=== PATIENT | male | born 1935 | race Caucasian/White ===

== ENCOUNTER → 2016-11-16 | Outpatient (CLI) | payer BC ==
[~2016-11-16] MED LIST: ASCO500T16 PO; ASPI81TA28 PO; BROM0.07 OPR; CEPH-571 PO; CHOLTAB3 PO; COCO1OIL2 PO; COEN100C3 PO; DUTA0.5C PO; IBUP-103 PO; MISCCAP3 PO; MULT-506 PO; PRED1SUS17 OPL; PRED1SUS3 OPR; RANI75TA7 PO; RANITAB33 PO; TAMS0.4C38 PO; ZINC1TAB PO
[2016-11-16 12:57] LABS: BASO % 0.3 %; BASO ABS # 0.02 K/uL (0-0.2); COMPLETE YES; EOS % 1.6 %; HEMATOCRIT 45.6 % (42-52); IG% 0.2 %; LYMPH % 30.6 %; LYMPH ABS # 1.94 K/uL (1.2-3.4); MEAN CORPUSCULAR HEMOGLOBIN 32.7 pg (25-34); MEAN CORPUSCULAR HGB CONC 34.4 g/dl (32-36); MONO % 6.2 %; NEUT % 61.1 %; PLATELET COUNT 230 K/uL (130-400); WHITE BLOOD COUNT 6.33 K/uL (4.8-10.8)
[2016-11-16 13:07] LABS: ALT/SGPT 28 U/L (12-78); AST/SGOT 17 U/L (15-37); BLOOD UREA NITROGEN 17 mg/dl (7-18); BUN/CREATININE RATIO 14.3 (10-20); CARBON DIOXIDE 27 mmol/L (21-32); CHLORIDE 105 mmol/L (98-107); CHOLESTEROL 209 mg/dl (0-200); GLUCOSE 100 mg/dl (70-99); POTASSIUM 4.1 mmol/L (3.5-5.1); SODIUM 142 mmol/L (136-145); TRIGLYCERIDES 181 mg/dl (0-150); VERY LOW DENSITY LIPOPROT CALC 36 mg/dl
[2016-11-16 13:09] LABS: ALB/GLOB RATIO 1.1 (0.9-2); ALKALINE PHOSPHATASE 71 U/L (45-117); CHOLESTEROL/HDL RATIO 3.9; HDL CHOLESTEROL 53 mg/dl
== END | disposition home or self-care (01) ==
LOC: C.LABSPEC 12:29
PROVIDERS: ATTEND Internal Medicine
DX: E78.5 Hyperlipidemia, unspecified (principal); R53.83 Other fatigue

== ENCOUNTER → 2016-11-17 | Outpatient (CLI) | payer BC | END | disposition home or self-care (01) | LOC: C.LABSPEC 12:36 | PROVIDERS: ATTEND Internal Medicine | DX: R19.4 Change in bowel habit (principal) ==

== ENCOUNTER → 2016-12-24 | Day surgery (SDC) | payer BC ==
[2016-12-20 13:21] VITALS: Ht 185.4 cm; Wt 90.9 kg
[~2016-12-24] VITALS: Ht 185.4 cm; Wt 90.9 kg
[~2016-12-24] MED LIST changes: +500ML BSS 0.3ML EPI 1:1000PF IRRIG ONE; +ACETAMINOPHEN 325 MG TAB PO PRN; +AMVISC PLUS 0.8ML SYRINGE INT OCU ONE; +ATROPINE SULFATE 0.1 MG/ML 5ML SYR IV PRN; +BRIMONIDINE TART 0.2% OP SOLN PER DROP CHARGE ONE; +BSS FLUSH ONE; -CHOLTAB3 PO; +ENDOCOAT 0.85ML SYRINGE INT OCU ONE; +EpHEDrine SULFATE INJ 50 MG/ML AMP IV PRN; +EpINEphrine INJ 1MG/ML AMP 1 MG/ML AMP ONE; -IBUP-103 PO; +LACTATED RINGER'S 1000ML 500 ML IV SCH; +LIDOCAINE 4% OP SOLN DROP CHARGE ONE; +LIDOCAINE 4% OP SOLN DROP CHARGE OPR SCH; +LIDOCAINE HCL 1% MPF 2 ML VIAL ONE; +MIDAZOLAM HCL 1 MG/ML 2ML VIAL ONE; +MIX: 3ML BSS AND 1ML EPI(PF) TOP ONE; +MOXIFLOXACIN OPH SOLN PER DROP CHARGE ONE; +POVIDONE-IODINE OP SOLN 30 ML BTL ONE; +PROPARACAINE 0.5% OP SOLN PER DROP CHARGE OPR SCH; +TOBRAMYCIN/DEXAMETHASONE OPH OINT PER APPLN CHARGE ONE
[2016-12-24] MEDS: PHENYLEPHRINE HCL 2.5% OP SOLN PER DROP CHARGE OPR SCH ×2 (07:44→07:50)
[2016-12-24] MEDS: TROPICAMIDE 1% OP SOLN PER DROP CHARGE OPR SCH ×2 (07:45→07:50)
[2016-12-24] MEDS: CYCLOPENTOLATE HCL 1% OP SOLN PER DROP CHARGE OPR SCH ×2 (07:46→07:51)
[2016-12-24] MEDS: KETOROLAC 0.5% OP SOLN PER DROP CHARGE OPR SCH ×2 (07:47→07:52)
[2016-12-24] MEDS: MOXIFLOXACIN OPH SOLN PER DROP CHARGE OPR SCH ×2 (07:48→07:58)
--- NOTE | 2016-12-24 08:08 | History & Physical Bridge - [place] ---
H&P Re-Evaluation Bridge Note: I have examined the patient, reviewed the History & Physical and in the interval since the performance of the History & Physical I have noted the following changes of clinical significance: No changes noted
[2016-12-24 09:08] VITALS: TEMP 36.1
--- NOTE | 2016-12-24 09:10 | Discharge Instructions-SurgCtr ---
Discharge Instructions Visit Reason for Visit: Cataract Right Eye Discharge Discharge Diagnosis / Problem: cataract right eye Discharge Goals Goal(s): Improve function Medications Stopped Medications Name(s): Pt. was told not to take a.m. meds. Activity Recommendations Activity Limitations: per Instructions/Follow-up section Lifting Limitations: no more than 5 pounds Anesthesia . Post Anesthesia Instructions: If you have had General Anesthesia or IV Sedation: * Do not drive today. * Resume driving when surgeon permits. * Do not make important decisions or sign legal documents today. * Call surgeon for: 1. Temperature elevations greater than 101 degrees F. 2. Uncontrollable pain. 3. Excessive bleeding. 4. Persistent nausea and vomiting. 5. Medication intolerance (nausea, vomiting or rash). * For nausea and vomiting use only clear liquids such as: tea, soda, bouillon until nausea subsides, then gradually increase diet as tolerated. * If you have any concerns or questions, call your surgeon's office. If physician is unavailable and it is an emergency, call 911 or go to the nearest emergency room. . Instructions / Follow-Up Instructions / Follow-Up ACTIVITY RECOMMENDATIONS: * Light activities * You may walk outside, read, watch television. * Mild irritation and blurred vision are common for the first few days, redness around the white part of the eye is common. MEDICATIONS: Resume previous medications unless instructed otherwise by your surgeon. Eye drops (today and tomorrow): Cipro - one drop in operative eye every 2 hours while awake Prednisolone 1% - one drop in operative eye every 2 hours while awake Ilevro - one drop operative eye 1 times daily SPECIAL CARE INSTRUCTIONS: * If any problems or concerns, please call Dr. Crawford's office at . * Keep plastic shield taped over eye to sleep at night. * Keep plastic shield taped over eye except to administer eye drops. * Keep plastic shield on until office visit the following day. FOLLOW UP VISIT: Follow-up with Dr. Crawford in the [place] office as scheduled. If not already scheduled, please call the office at . Diet Recommendations Home Diet: resume previous diet Procedures Procedures Performed: Right Cataract Phacoemulsification With Intraocular Lens Implant Pending Studies Studies pending at discharge: no Medical Emergencies . Who to Call and When: Medical Emergencies: If at any time you feel your situation is an emergency, please call 911 immediately. . Non-Emergent Contact Non-Emergency issues call your: Java Architect . . "Provider Documentation" section prepared by Jose Crawford.
--- NOTE | 2016-12-24 09:11 | [facility] Post Operative Brief Note ---
Immediate Operative Summary Operative Date Dec 24, 2016. Pre-Operative Diagnosis Right Eye Cataract Post-Operative Diagnosis same Procedure(s) Performed Right Cataract Phacoemulsification With Intraocular Lens Implant Surgeon Dr. Rima Crawford Insurance Defense Attorney Surgeon(s) 0 Estimated Blood Loss 0 Findings cataract right eye Specimens none Complication(s) None Disposition Recovery Room / PACU
[2016-12-24 09:32] VITALS: BP 129/79; PULSE 73; O2SAT 98
--- NOTE | 2016-12-24 09:33 | OPERATIVE REPORT ---
DATE OF OPERATION: 12/24/2016 PREOPERATIVE DIAGNOSIS: Cataract, right eye. POSTOPERATIVE DIAGNOSIS: Cataract, right eye. PROCEDURE: Phacoemulsification cataract extraction with intraocular lens placement, right eye. SURGEON: Dr. Crawford. COMPLICATIONS: None. ESTIMATED BLOOD LOSS: None. ANESTHESIA: Topical with sedation. OPERATION AND FINDINGS: After informed consent was obtained in the holding area the patient was wheeled back to the Operating Room where cardiac monitoring leads and oxygen by nasal cannula was administered by Anesthesia. Gentle IV sedation was given, and the patient's right eye was prepped and draped in usual sterile fashion. A wire lid speculum was placed into the right eye and the operating microscope was swung into position. Using 0.12 forceps and a Supersharp blade a paracentesis port was made 3 o'clock hours away from the 9 o'clock position of patient's right eye. 1% non-preserved Lidocaine was then injected into the anterior chamber for anesthesia. A 2.2 mm keratotome blade was then used to make a shelved clear corneal incision at the 9 o'clock position of his right eye. Amvisc was injected into the anterior chamber and a cystotome and Utrata forceps were used to perform a curvilinear capsulorrhexis. BSS on a hydrodissection cannula was used to hydrodissect the lens nucleus away from the capsular bag. The phacoemulsification handpiece was then used in a stop and chop fashion to remove the lens nucleus. The irrigation and aspiration handpiece was then used to remove the residual cortical material. Amvisc was injected into the capsular bag and anterior chamber and a Bausch \T\ Lomb MX60, 22.0 Diopter intraocular lens was injected into the capsular bag. Irrigation and aspiration handpiece was used to remove the residual viscoelastic material. The wounds were hydrated and noted to be watertight. The wire lid speculum was removed from the eye. Vigamox, Brimonidine, and TobraDex ointment were placed on the eye and it was shielded. It should be noted that a mixture of 1 mL of nonpreserved epinephrine and 3 mL of BSS was injected into the eye at the beginning of the case to aid with pupillary dilation in this Flomax patient. EndoCoat was also used extensively throughout the case to protect the cornea endothelium and to keep the iris back in this Flomax patient. DISPOSITION: The patient tolerated the procedure well and was wheeled to the post anesthesia care unit in stable condition. I attest to the content of the Intraoperative Record and any orders documented therein. Any exceptions are noted below. I attest to the content of the Intraoperative Record and any orders documented therein. Any exceptio ns are noted below.
--- NOTE | 2016-12-24 09:35 | Anesthesia Progress Nt - [facility] ---
Anesthesia Post Op Note Date & Time Dec 24, 2016 at 09:35 Vital Signs Pain Intensity: 0 Vital Signs Past 12 Hours Date Time Temp Pulse Resp B/P Pulse Ox O2 Delivery O2 Flow Rate FiO2 12/24/16 09:32 73 16 129/79 98 Room Air 12/24/16 09:08 36.1 80 16 134/85 98 Room Air 12/24/16 07:27 36.3 70 16 143/76 97 Room Air Notes Mental Status: alert / awake / arousable, participated in evaluation Pt Amnestic to Procedure: Yes Nausea / Vomiting: adequately controlled Pain: adequately controlled Airway Patency, RR, SpO2: stable & adequate BP & HR: stable & adequate Hydration State: stable & adequate Anesthetic Complications: no major complications apparent
== END | disposition home or self-care (01) ==
LOC: X.SURG 07:13
PROVIDERS: ATTEND Ophthalmology
DX: H25.11 Age-related nuclear cataract, right eye (principal); N42.9 Disorder of prostate, unspecified; Z87.891 Personal history of nicotine dependence; Z83.3 Family history of diabetes mellitus

== ENCOUNTER → 2017-01-07 | Day surgery (SDC) | payer BC ==
[2017-01-01 11:10] VITALS: Ht 185.4 cm; Wt 90.9 kg
[~2017-01-07] VITALS: Ht 185.4 cm; Wt 90.9 kg
[~2017-01-07] MED LIST changes: +FENTANYL CITRATE INJ 50 MCG/1 ML 2 ML VIAL ONE; +LIDOCAINE 4% OP SOLN DROP CHARGE OPL SCH; -LIDOCAINE 4% OP SOLN DROP CHARGE OPR SCH; +PROPARACAINE 0.5% OP SOLN PER DROP CHARGE OPL SCH; -PROPARACAINE 0.5% OP SOLN PER DROP CHARGE OPR SCH
[2017-01-07] MEDS: PHENYLEPHRINE HCL 2.5% OP SOLN PER DROP CHARGE OPL SCH ×2 (06:40→06:45)
[2017-01-07] MEDS: TROPICAMIDE 1% OP SOLN PER DROP CHARGE OPL SCH ×2 (06:41→06:46)
[2017-01-07] MEDS: CYCLOPENTOLATE HCL 1% OP SOLN PER DROP CHARGE OPL SCH ×2 (06:42→06:47)
[2017-01-07] MEDS: KETOROLAC 0.5% OP SOLN PER DROP CHARGE OPL SCH ×2 (06:43→06:48)
[2017-01-07] MEDS: MOXIFLOXACIN OPH SOLN PER DROP CHARGE OPL SCH ×2 (06:44→06:54)
[2017-01-07 07:57] VITALS: TEMP 36.4
--- NOTE | 2017-01-07 07:59 | Discharge Instructions-SurgCtr ---
Discharge Instructions Date of Service Jan 07, 2017. Visit Reason for Visit: Cataract Left Eye Discharge Discharge Diagnosis / Problem: cataract left eye Discharge Goals Goal(s): Improve function Activity Recommendations Activity Limitations: per Instructions/Follow-up section Lifting Limitations: no more than 5 pounds Anesthesia . Post Anesthesia Instructions: If you have had General Anesthesia or IV Sedation: * Do not drive today. * Resume driving when surgeon permits. * Do not make important decisions or sign legal documents today. * Call surgeon for: 1. Temperature elevations greater than 101 degrees F. 2. Uncontrollable pain. 3. Excessive bleeding. 4. Persistent nausea and vomiting. 5. Medication intolerance (nausea, vomiting or rash). * For nausea and vomiting use only clear liquids such as: tea, soda, bouillon until nausea subsides, then gradually increase diet as tolerated. * If you have any concerns or questions, call your surgeon's office. If physician is unavailable and it is an emergency, call 911 or go to the nearest emergency room. . Instructions / Follow-Up Instructions / Follow-Up ACTIVITY RECOMMENDATIONS: * Light activities * You may walk outside, read, watch television. * Mild irritation and blurred vision are common for the first few days, redness around the white part of the eye is common. MEDICATIONS: Resume previous medications unless instructed otherwise by your surgeon. Eye drops (today and tomorrow): Cipro - one drop in operative eye every 2 hours while awake Prednisolone 1% - one drop in operative eye every 2 hours while awake Ilevro - one drop operative eye 1 times daily SPECIAL CARE INSTRUCTIONS: * If any problems or concerns, please call Dr. Crawford's office at . * Keep plastic shield taped over eye to sleep at night. * Keep plastic shield taped over eye except to administer eye drops. * Keep plastic shield on until office visit the following day. FOLLOW UP VISIT: Follow-up with Dr. Crawford in the [place] office as scheduled. If not already scheduled, please call the office at . Diet Recommendations Home Diet: resume previous diet Procedures Procedures Performed: Left Cataract Phacoemulsification With Intraocular Lens Implant Pending Studies Studies pending at discharge: no Medical Emergencies . Who to Call and When: Medical Emergencies: If at any time you feel your situation is an emergency, please call 911 immediately. . Non-Emergent Contact Non-Emergency issues call your: Maintenance And Engineering Manager . . "Provider Documentation" section prepared by Jose Crawford.
--- NOTE | 2017-01-07 08:00 | [facility] Post Operative Brief Note ---
Immediate Operative Summary Operative Date Jan 07, 2017. Pre-Operative Diagnosis Cataract left eye Post-Operative Diagnosis same Procedure(s) Performed Left Cataract Phacoemulsification With Intraocular Lens Implant Surgeon Dr Crawford Manager Concrete Surgeon(s) 0 Estimated Blood Loss 0 Findings cataract left eye Specimens 0 Complication(s) None Disposition Recovery Room / PACU
--- NOTE | 2017-01-07 08:01 | Anesthesia Progress Nt - [facility] ---
Anesthesia Post Op Note Date & Time Jan 07, 2017 at 08:00 Vital Signs Pain Intensity: 0 Vital Signs Past 12 Hours Date Time Temp Pulse Resp B/P Pulse Ox O2 Delivery O2 Flow Rate FiO2 01/07/17 06:31 36.4 73 18 143/75 96 Room Air Notes Mental Status: alert / awake / arousable, participated in evaluation Pt Amnestic to Procedure: Yes Nausea / Vomiting: adequately controlled Pain: adequately controlled Airway Patency, RR, SpO2: stable & adequate BP & HR: stable & adequate Hydration State: stable & adequate Anesthetic Complications: no major complications apparent
--- NOTE | 2017-01-07 08:10 | OPERATIVE REPORT ---
DATE OF OPERATION: 01/07/2017 PREOPERATIVE DIAGNOSIS: Cataract, left eye. POSTOPERATIVE DIAGNOSIS: Cataract, left eye. PROCEDURE: Phacoemulsification cataract extraction with intraocular lens placement, left eye. SURGEON: Dr. Crawford. COMPLICATIONS: None. ESTIMATED BLOOD LOSS: None. ANESTHESIA: Topical with sedation. OPERATION AND FINDINGS: After informed consent was obtained in the holding area the patient was wheeled back to the Operating Room where cardiac monitoring leads and oxygen by nasal cannula was administered by Anesthesia. Gentle IV sedation was given, and the patient's left eye was prepped and draped in usual sterile fashion. A wire lid speculum was placed into the left eye and the operating microscope was swung into position. Using 0.12 forceps and a Supersharp blade a paracentesis port was made 3 o'clock hours away from the 3 o'clock position of patient's left eye. 1% non-preserved Lidocaine was then injected into the anterior chamber for anesthesia. A 2.2 mm keratotome blade was then used to make a shelved clear corneal incision at the 3 o'clock position of his left eye. Amvisc was injected into the anterior chamber and a cystotome and Utrata forceps were used to perform a curvilinear capsulorrhexis. BSS on a hydrodissection cannula was used to hydrodissect the lens nucleus away from the capsular bag. The phacoemulsification handpiece was then used in a stop and chop fashion to remove the lens nucleus. The irrigation and aspiration handpiece was then used to remove the residual cortical material. Amvisc was injected into the capsular bag and anterior chamber and a Bausch \T\ Lomb MX60 21.5 Diopter intraocular lens was injected into the capsular bag. Irrigation and aspiration handpiece was used to remove the residual viscoelastic material. The wounds were hydrated and noted to be watertight. The wire lid speculum was removed from the eye. Vigamox, Brimonidine, and TobraDex ointment were placed on the eye and it was shielded. It should be noted that EndoCoat was used during the case to protect the cornea endothelium. A mixture of 1 mL of nonpreserved epinephrine and 3 mL of BSS was also injected into the eye at the beginning of the case to aid with pupillary dilation in this Flomax patient. DISPOSITION: The patient tolerated the procedure well and was wheeled to the post anesthesia care unit in stable condition. I attest to the content of the Intraoperative Record and any orders documented therein. Any exceptions are noted below. I attest to the content of the Intraoperative Record and any orders documented therein. Any exceptio ns are noted below.
[2017-01-07 08:25] VITALS: BP 112/65; PULSE 72; O2SAT 96
== END | disposition home or self-care (01) ==
LOC: X.SURG 06:19
PROVIDERS: ATTEND Ophthalmology
DX: H26.9 Unspecified cataract (principal); H54.7 Unspecified visual loss; Z98.41 Cataract extraction status, right eye; D23.10 Other benign neoplasm of skin of unspecified eyelid, including canthus; H04.129 Dry eye syndrome of unspecified lacrimal gland

== ENCOUNTER 2017-01-17 19:16 | Emergency (ER) | payer BC ==
[~2017-01-17] VITALS: Ht 185.4 cm; Wt 92.4 kg
[~2017-01-17 19:16] MED LIST changes: -500ML BSS 0.3ML EPI 1:1000PF IRRIG ONE; -ACETAMINOPHEN 325 MG TAB PO PRN; -AMVISC PLUS 0.8ML SYRINGE INT OCU ONE; -ATROPINE SULFATE 0.1 MG/ML 5ML SYR IV PRN; -BRIMONIDINE TART 0.2% OP SOLN PER DROP CHARGE ONE; -BSS FLUSH ONE; -CEPH-571 PO; -ENDOCOAT 0.85ML SYRINGE INT OCU ONE; -EpHEDrine SULFATE INJ 50 MG/ML AMP IV PRN; -EpINEphrine INJ 1MG/ML AMP 1 MG/ML AMP ONE; -FENTANYL CITRATE INJ 50 MCG/1 ML 2 ML VIAL ONE; -LACTATED RINGER'S 1000ML 500 ML IV SCH; -LIDOCAINE 4% OP SOLN DROP CHARGE ONE; -LIDOCAINE 4% OP SOLN DROP CHARGE OPL SCH; -LIDOCAINE HCL 1% MPF 2 ML VIAL ONE; -MIDAZOLAM HCL 1 MG/ML 2ML VIAL ONE; -MIX: 3ML BSS AND 1ML EPI(PF) TOP ONE; -MOXIFLOXACIN OPH SOLN PER DROP CHARGE ONE; -POVIDONE-IODINE OP SOLN 30 ML BTL ONE; -PRED1SUS3 OPR; -PROPARACAINE 0.5% OP SOLN PER DROP CHARGE OPL SCH; -RANITAB33 PO; -TOBRAMYCIN/DEXAMETHASONE OPH OINT PER APPLN CHARGE ONE
[2017-01-17 19:23] VITALS: TEMP 36.8; Ht 185.4 cm; Wt 92.4 kg
[2017-01-17] MEDS ORDERED: PRED1SUS3 OPR (19:47)
[2017-01-17] MEDS ORDERED: RANITAB33 PO (19:48)
[2017-01-17 20:23] LABS: MANUAL MICROSCOPIC REQUIRED? YES; URINE APPEARANCE TURBID (CLEAR); URINE BILIRUBIN NEG (NEG); URINE COLOR RED; URINE NITRITE NEG (NEG); URINE SPECIFIC GRAVITY 1.025 (1.000-1.030); UROBILINOGEN NEG (NEG)
[2017-01-17 20:40] LABS: REVIEW REQ? NO
[2017-01-17 20:44] LABS: URINE BACTERIA NEG (NEG); URINE RBC >30 /hpf (0-4); URINE WBC >30 /hpf (0-5)
[2017-01-17 21:06] VITALS: BP 183/93; PULSE 85; O2SAT 94
[2017-01-17] MEDS ORDERED: CEPHALEXIN 500MG HOME PACK 1 EA BTL PO ONE (21:15)
[2017-01-17] MEDS ORDERED: CEPH-571 PO (21:15)
--- NOTE | 2017-01-18 00:08 | EMERGENCY ROOM VISIT NOTE ---
ED Visit Note First contact with patient: 19:29 Chief Complaint: Bloody urine. History of Present Illness: Mr. Beach is an 81-year-old white male who ambulates into the ED complaining of passing blood clots in his urine approximately 30 minutes ago. Additionally patient reports he reports she's had mild urinary burning for the last couple of days but has not seen any blood until today. Currently he reported he is pain-free. He has not taken any medications for his symptoms prior to arrival at the hospital. He denies fevers, chills, sweats, skin eruptions, skin color changes, headache, dizziness, lightheadedness, chest pain, shortness of breath, abdominal pain, bloody stool, flank pain, easy bleeding, easy bruising, unusual bleeding. Review of Systems: As noted above in history of present illness. 8 body systems were reviewed and found to be negative as noted above. Past Medical History: Bronchitis, pneumonia, benign prostatic hypertrophy, status post right inguinal hernia repair and bilateral cataract removal. Current Medications: Medications Dose Route/Sig Max Daily Dose Days Date Category Dose Instructions Zantac (Ranitidine Hcl) 75 Mg Tab 75 Mg PO HS 01/17/17 Reported Pred Forte 1% Oph (Prednisolone Acetate (Ophth)) 1 % Bryanna 1 Drops OPR DAILY 01/17/17 Reported Prolensa (Bromfenac Sodium (Ophth)) 0.07 % Kadi 1 Drop OPR DAILY 01/01/17 Reported Prednisolone Acetate (Prednisolone Acetate (Ophth)) 1 % Bryanna 1 Drop OPL TID 01/01/17 Reported EACH EYE Coconut Oil (Coconut Oil (Bulk)) 1 Oil Oil 1 Dose PO QAM 12/25/15 Reported Flomax (Tamsulosin Hcl) 0.4 Mg Cap 0.4 Mg PO HS 12/25/15 Reported Pumpkin Seed Oil ([employer] Natural Products) 1 Cap Cap 1 Cap PO QAM 12/25/15 Reported Co Q-10 (Coenzyme Q10 (Ubidecarenone)) Unknown Strength Cap 30 Mg PO QAM 12/25/15 Reported Zinc (Zinc Gluconate) Unknown Strength Tab 25 Mg PO QAM 12/25/15 Reported Ascorbic Acid 500 Mg Tab 500 Mg PO QAM 12/25/15 Reported Aspirin Ec (Aspirin) 81 Mg Tab 81 Mg PO QAM 12/25/15 Reported Avodart (Dutasteride) 0.5 Mg Cap 0.5 Mg PO HS 12/25/15 Reported Multivitamin (Multivitamins) Tab 1 Tab PO QAM 01/02/12 Reported Allergies to Medications: Patient denies. Social History: Patient is currently retired; he lives alone and feels safe in his home environment; he denies tobacco and alcohol use. Physical Examination: Vital Signs: Date Time Temp Pulse Resp B/P Pulse Ox O2 Delivery O2 Flow Rate FiO2 01/17/17 21:06 85 18 183/93 94 Room Air 01/17/17 19:23 36.8 80 20 165/111 99 Room Air GENERAL: 81-year-old male in no acute distress, nontoxic-appearing, afebrile and hemodynamically stable. NEUROLOGICAL: Awake, alert and oriented to person, place and time. Answering questions appropriately and following commands. SKIN: Warm, dry and pink. No soft tissue eruptions or trauma noted. BACK: No CVA tenderness. THORAX: Lungs sounds are clear to auscultation and equal bilaterally with symmetrical chest wall. No wheezing, rales or rhonchi. HEART: Regular rate and rhythm. No gallops, rubs or murmurs are appreciated. ABDOMEN: Flat, soft and nontender. Positive bowel sounds in all quadrants. No guarding, rigidity or organomegaly. EXTREMITIES: Moves all extremities well on command and with purpose. All distal neurovascular statuses are intact and equal bilaterally. ED Course: Patient is assessed as noted above. Laboratory Testing: Test 01/17/17 19:58 Range/Units Urine Color RED Urine Appearance TURBID CLEAR Urine pH 7.0 4.5-7.5 Urine Specific Kenneth 1.025 1.000-1.030 Urine Protein 2+ NEG Urine Glucose (UA) NEG NEG Urine Ketones NEG NEG Urine Occult Blood 3+ NEG Urine Nitrite NEG NEG Urine Bilirubin NEG NEG Urine Urobilinogen NEG NEG Urine Leukocyte Esterase NEG NEG Urine RBC >30 0-4 /hpf Urine WBC >30 0-5 /hpf Urine Epithelial Cells 5-10 0-5 /lpf Urine Other Crystals NONE PRSENT Urine Bacteria NEG NEG Urine Culture: Pending Patient's case was reviewed with Dr. Coyle; he independently assessed the patient we agreed on diagnostic approach, treatment, disposition and plan. Patient was educated about tonight's findings and instructed on his treatment plan; he verbalizes understanding and agreement with this plan. Clinical Impression: Gross hematuria. Urinary tract infection. Disposition: Patient discharged home in stable condition; prior to departure he was reassessed and subjectively reported he was pain-free but did report just prior to discharge instructions he had an additional episode of urination and he continued to have blood in his urine. Plan: Patient was prescribed Keflex 500 mg 4 times a day for 7 days. Patient was encouraged to stay well-hydrated with increased clear fluids. Patient was encouraged to follow-up with his primary care provider for recheck. Patient was encouraged to use 650 mg of acetaminophen for pain. Patient was encouraged return the ED for worsening discomfort, fevers, flank pain, vomiting or any new/concerning symptoms.
--- NOTE | 2017-01-18 15:17 | EMERGENCY ROOM VISIT NOTE ---
ED Visit Note First contact with patient: 19:29 I have personally evaluated and examined this patient. I agree with assessment and plan of Gustavo Magana PA-C. 81 yr old male with hematuria and possible UTI symptoms last week or so. Looks well and in no distress. No pelvic discomfort nor other symptoms. Discussed abx and follow up with PCP for repeat urinalysis. Furthermore discussed risk of retention and other symptoms to monitor for.
== END 2017-01-17 21:30 | disposition home or self-care (01) ==
LOC: C.EDB 19:17 → C.EDD 21:30
DX: R31.0 Gross hematuria (principal); N39.0 Urinary tract infection, site not specified; N40.0 Benign prostatic hyperplasia without lower urinary tract symptoms; Z79.82 Long term (current) use of aspirin; Z79.899 Other long term (current) drug therapy

== ENCOUNTER → 2017-01-25 | Outpatient (CLI) | payer BC ==
[~2017-01-25] MED LIST changes: +PRED1SUS3 OPR; -RANI75TA7 PO; +RANITAB33 PO
[2017-01-25 16:04] LABS: BASO % 0.5 %; BASO ABS # 0.03 K/uL (0-0.2); COMPLETE YES; EOS % 2.1 %; IG% 0.2 %; LYMPH % 37.8 %; LYMPH ABS # 2.12 K/uL (1.2-3.4); MEAN CELL VOLUME 96.4 fL (80-100); MEAN CORPUSCULAR HEMOGLOBIN 33.2 pg (25-34); MEAN CORPUSCULAR HGB CONC 34.4 g/dl (32-36); MEAN PLATELET VOLUME 9.7 fL (7.4-10.4); MONO % 6.2 %; NEUT % 53.2 %; PLATELET COUNT 230 K/uL (130-400); RED BLOOD COUNT 4.46 M/uL (4.7-6.1); WHITE BLOOD COUNT 5.61 K/uL (4.8-10.8)
[2017-01-25 16:11] LABS: ALT/SGPT 30 U/L (12-78); BLOOD UREA NITROGEN 14 mg/dl (7-18); BUN/CREATININE RATIO 12.8 (10-20); CARBON DIOXIDE 29 mmol/L (21-32); CHLORIDE 105 mmol/L (98-107); GLUCOSE 96 mg/dl (70-99); POTASSIUM 4.2 mmol/L (3.5-5.1); SODIUM 140 mmol/L (136-145)
[2017-01-25 16:14] LABS: ALKALINE PHOSPHATASE 60 U/L (45-117); AST/SGOT 16 U/L (15-37)
[2017-01-25 16:22] LABS: URINE APPEARANCE CLEAR (CLEAR); URINE BILIRUBIN NEG (NEG); URINE COLOR YELLOW; URINE NITRITE NEG (NEG); URINE SPECIFIC GRAVITY 1.011 (1.000-1.030); UROBILINOGEN NEG (NEG)
[2017-01-25 16:29] LABS: MANUAL MICROSCOPIC REQUIRED? NO; REVIEW REQ? NO
== END | disposition home or self-care (01) ==
LOC: C.LABSPEC 15:10
PROVIDERS: ATTEND Internal Medicine
DX: R31.9 Hematuria, unspecified (principal)

== ENCOUNTER → 2017-02-01 | Outpatient (CLI) | payer BC | END | disposition home or self-care (01) | LOC: C.PATHSPEC 15:31 | PROVIDERS: ATTEND Urology | DX: N40.1 Benign prostatic hyperplasia with lower urinary tract symptoms (principal); R31.0 Gross hematuria ==

== ENCOUNTER → 2017-02-06 | Outpatient (CLI) | payer BC ==
[~2017-02-06] MED LIST changes: +OPTIRAY 320 IV PRN
--- NOTE | 2017-02-06 08:18 | DIAGNOSTIC IMAGING REPORT ---
CT UROGRAM CLINICAL HISTORY: Gross hematuria. COMPARISON STUDY: No priors. TECHNIQUE: Before and following the IV administration of 119 cc of Optiray 320, CT urogram of the abdomen and pelvis is performed from the lung bases to the proximal femora. Images are reviewed in the axial, sagittal, and coronal planes. IV contrast was administered without complication. CT DOSE: 958.56 mGy.cm FINDINGS: Lung bases: The heart is top normal in size and without pericardial effusion. The mitral annulus is densely calcified. Advanced emphysema is noted at the lung bases. No airspace consolidation or pleural effusion is identified. There are foci of bibasilar scarring versus atelectasis. Scattered calcified granulomas are observed. There is a large and predominantly fat-containing hiatal hernia. Liver: The contrast-enhanced liver is normal in size, contour, and attenuation. There are scattered calcified hepatic granulomas. There is no intrahepatic biliary ductal dilatation. The hepatic veins and portal veins are patent. There is a 4.3 cm cyst arising from the inferior liver. Additional smaller hepatic cysts are identified. Gallbladder: Calcified gallstones are noted. Spleen: Normal in size and attenuation. There are scattered calcified splenic granulomas. Pancreas: Unremarkable. Adrenal glands: Unremarkable. Kidneys and ureters: The contrast enhanced kidneys insert cortical atrophy and are without hydronephrosis. There are no renal calculi identified on the unenhanced images. The kidneys enhance and excrete symmetrically. There is no enhancing renal cortical mass lesion identified. There is no evidence of urothelial lesion within the renal pelvis bilaterally or along the course of either ureter. Abdominal vasculature: The abdominal aorta is normal in course and caliber noting moderate atherosclerotic calcification. Bowel: The small bowel and colon are normal in course and caliber. There is mild to moderate sigmoid diverticulosis without CT evidence of acute diverticulitis. Mild colonic fecal retention is observed. The appendix is well-visualized and normal. Peritoneum: There is no intraperitoneal free air or abdominal ascites. There is a small fat-containing umbilical hernia. Lymphadenopathy: None. Pelvic viscera: There are numerous bladder calculi identified. The bladder wall appears thickened and trabeculated suggesting the sequelae of chronic outlet obstruction. The prostate gland is enlarged, measuring 4.6 cm in diameter. The seminal vesicles are normal as imaged. There are small bilateral fat-containing inguinal hernias. Skeletal structures: The skeletal structures are osteopenic. There is mild to moderate lumbosacral spondylosis. Degenerative changes noted in the sacroiliac joints. No lytic or blastic bony lesions are seen. IMPRESSION: 1. The kidneys demonstrate cortical atrophy and are without hydronephrosis. No renal calculi are identified. 2. There is no enhancing renal cortical mass. No evidence of urothelial lesion is seen within the renal pelvis bilaterally or along the course of ureters. 3. Small layering bladder calculi are identified. 4. Prostatomegaly with evidence of chronic bladder outlet obstruction. 5. Mild to moderate sigmoid diverticulosis without CT evidence of acute diverticulitis. 6. Advanced emphysema is noted at the lung bases. 7. Cholelithiasis. 8. Additional findings as above. Electronically signed by: Mervin Rivers M.D. 02/06/2017 8:17 AM Dictated Date/Time: 02/06/2017 8:05 AM
== END | disposition home or self-care (01) ==
LOC: C.CTS 07:31
PROVIDERS: ATTEND Urology
DX: R31.0 Gross hematuria (principal); N26.1 Atrophy of kidney (terminal); N21.0 Calculus in bladder; N40.1 Benign prostatic hyperplasia with lower urinary tract symptoms; K57.30 Diverticulosis of large intestine without perforation or abscess without bleeding; J43.9 Emphysema, unspecified; K80.20 Calculus of gallbladder without cholecystitis without obstruction

== ENCOUNTER 2017-03-10 12:29 | Emergency (ER) | payer BC ==
[~2017-03-10] VITALS: Ht 185.4 cm; Wt 92.1 kg
[~2017-03-10 12:29] MED LIST changes: -OPTIRAY 320 IV PRN
[2017-03-10 12:30] VITALS: TEMP 36.3; Ht 185.4 cm; Wt 92.1 kg
[2017-03-10 13:15] LABS: URINE APPEARANCE CLEAR (CLEAR); URINE BILIRUBIN NEG (NEG); URINE COLOR YELLOW; URINE EPITHELIAL CELL AUTO 0-5 /lpf (0-5); URINE NITRITE NEG (NEG); URINE PH 6.5 (4.5-7.5); URINE SPECIFIC GRAVITY 1.013 (1.000-1.030); UROBILINOGEN NEG (NEG); ZZUR CULT IF INDIC CLEAN CATCH NO
[2017-03-10 13:17] LABS: MANUAL MICROSCOPIC REQUIRED? NO; REVIEW REQ? NO
--- NOTE | 2017-03-10 14:13 | EMERGENCY ROOM VISIT NOTE ---
History Report prepared by Marybel: Columba Rodgers Under the Supervision of: Dr. Marcos Begum D.O. First contact with patient: 12:42 Chief Complaint: URINARY SYMPTOMS Stated Complaint: BURNING WHEN URINATING History of Present Illness The patient is an 81 year old male who presents to the Emergency Room with complaints of persistent urinary symptoms that began yesterday. The patient states that yesterday he developed dysuria. He states that he was going to try to wait until tomorrow to see his PCP, but states that he developed hematuria today. The patient denies any history of UTIs, but states that one month ago he passed a kidney stone. He states that he is scheduled for a cystoscope on April 12. The patient states that he quit smoking 40 years ago. He notes lower bilateral back pain. Source of History: patient Onset: yesterday Position: other (global) Quality: other (urinary symptoms) Timing: other (persistent) Associated Symptoms: + back pain (lower bilateral), + urinary symptoms ( dysuria, hematuria) Review of Systems See HPI for pertinent positives & negatives. A total of 10 systems reviewed and were otherwise negative. Past Medical & Surgical Medical Problems: (1) Acute bronchitis (2) Kidney stone (3) Left lower lobe pneumonia Surgical Problems: (1) H/O hernia repair Family History Cancer Diabetes mellitus Gallbladder disease Hypertension Social History Smoking Status: Former Smoker Alcohol Use: none Drug Use: none Marital Status: Housing Status: lives with family Occupation Status: retired Current/Historical Medications Scheduled Ascorbic Acid (Ascorbic Acid), 500 MG PO QAM Aspirin (Aspirin Ec), 81 MG PO QAM Coconut Oil (Bulk) (Coconut Oil), 1 DOSE PO QAM Coenzyme Q10 (Ubidecarenone) (Co Q-10), 30 MG PO QAM Dutasteride (Avodart), 0.5 MG PO Q2D Misc Natural Products (Pumpkin Seed Oil), 1 CAP PO QAM Multivitamin (Multivitamin), 1 TAB PO QAM Ranitidine Hcl (Zantac), 75 MG PO HS Tamsulosin Hcl (Flomax), 0.4 MG PO HS Zinc Gluconate (Zinc), 25 MG PO QAM Allergies Coded Allergies: No Known Allergies (Unverified , 03/10/17) Physical Exam Vital Signs Date Time Temp Pulse Resp B/P Pulse Ox O2 Delivery O2 Flow Rate FiO2 03/10/17 14:18 86 16 111/77 96 03/10/17 12:30 36.3 97 20 155/81 99 Room Air Physical Exam CONSTITUTIONAL/VITAL SIGNS: Reviewed / noted above. GENERAL: Non-toxic in appearance. INTEGUMENTARY: Warm, dry, and [place]. HEAD: Normocephalic. EYES: without scleral icterus or trauma. ENT/OROPHARYNX: clear and moist. LYMPHADENOPATHY/NECK: Is supple without lymphadenopathy or meningismus. RESPIRATORY: Lungs clear and equal. CARDIOVASCULAR: Regular rate and rhythm. GI/ABDOMEN: Soft and nontender. No organomegaly or pulsatile mass. No rebound or guarding. Normal bowel sounds. EXTREMITIES: Warm and well perfused. BACK: No CVA tenderness. NEUROLOGICAL: Intact without focal deficits. PSYCHIATRIC: normal affect. MUSCULOSKELETAL: Normally developed with good muscle tone. Medical Decision & Procedures Laboratory Results Test 03/10/17 13:00 Urine Color YELLOW Urine Appearance CLEAR (CLEAR) Urine pH 6.5 (4.5-7.5) Urine Specific [place] 1.013 (1.000-1.030) Urine Protein NEG (NEG) Urine Glucose (UA) NEG (NEG) Urine Ketones NEG (NEG) Urine Occult Blood 2+ (NEG) Urine Nitrite NEG (NEG) Urine Bilirubin NEG (NEG) Urine Urobilinogen NEG (NEG) Urine Leukocyte Esterase NEG (NEG) Urine WBC (Auto) 1-5 /hpf (0-5) Urine RBC (Auto) >30 /hpf (0-4) Urine Hyaline Casts (Auto) 0 /lpf (0-5) Urine Epithelial Cells (Auto) 0-5 /lpf (0-5) Urine Bacteria (Auto) NEG (NEG) Laboratory results as stated above per my review. ED Course 1250: Previous medical records were reviewed. The patient was evaluated in room C5. A complete history and physical examination was performed. 1414: I reevaluated the patient and he is doing well. I discussed the exam findings with him and I discussed the treatment plan. He verbalized complete understanding and agreement. He is ready to go home. Medical Decision Differential diagnosis: UTI, kidney stone, cancer. This is an 81-year-old male who presents to the ED with a chief complaint of some urinary frequency that started yesterday. He also saw a little blood in his urine today. He came in for evaluation of this. The patient denies any other symptoms. His exam was normal. He has no flank tenderness. He has no abdominal tenderness. He does have a cystoscopy scheduled for next month. He has already had some outpatient testing with regard to his hematuria. He is seeing Dr. Mcguire/Obi. The patient's urine today does not show infection. There is some microscopic hematuria. There is no gross hematuria on urinalysis. The patient was told the results. He is felt to be stable for discharge and outpatient follow-up. He will contact his doctors this week. Impression Primary Impression: Hematuria Scribe Attestation The scribe's documentation has been prepared under my direction and personally reviewed by me in its entirety. I confirm that the note above accurately reflects all work, treatment, procedures, and medical decision making performed by me. Departure Information Dispostion Home / Self-Care Referrals Cornel Henson M.D. (PCP) Forms HOME CARE DOCUMENTATION FORM, IMPORTANT VISIT INFORMATION Patient Instructions ED Hematuria, My [facility] Additional Instructions Contact your urologist for further evaluation and care. Your urine shows some microscopic blood but no evidence of infection. Outpatient cystoscopy has been already scheduled.
[2017-03-10 14:18] VITALS: BP 111/77; PULSE 86; O2SAT 96
== END 2017-03-10 14:19 | disposition home or self-care (01) ==
LOC: C.EDB 12:29 → C.EDC 14:19
DX: R31.9 Hematuria, unspecified (principal); Z87.442 Personal history of urinary calculi; Z87.891 Personal history of nicotine dependence; Z79.82 Long term (current) use of aspirin; Z79.899 Other long term (current) drug therapy; Z80.9 Family history of malignant neoplasm, unspecified; Z83.3 Family history of diabetes mellitus; Z83.79 Family history of other diseases of the digestive system; Z82.49 Family history of ischemic heart disease and other diseases of the circulatory system

== ENCOUNTER → 2017-04-09 | Outpatient (CLI) | payer BC ==
[~2017-04-09] MED LIST changes: -BROM0.07 OPR; -PRED1SUS17 OPL; -PRED1SUS3 OPR
== END | disposition home or self-care (01) ==
LOC: C.PATHSPEC 17:08
PROVIDERS: ATTEND Urology
DX: N40.1 Benign prostatic hyperplasia with lower urinary tract symptoms (principal); R31.0 Gross hematuria; N30.00 Acute cystitis without hematuria

== ENCOUNTER → 2017-07-10 | Outpatient (CLI) | payer BC | END | disposition home or self-care (01) | LOC: C.LABSPEC 17:25 | PROVIDERS: ATTEND Urology | DX: R31.0 Gross hematuria (principal) ==

== ENCOUNTER → 2017-11-20 | Outpatient (CLI) | payer BC ==
[2017-11-20 13:39] LABS: BASO % 0.3 %; BASO ABS # 0.02 K/uL (0-0.2); EOS % 2.4 %; EOS ABS # 0.15 K/uL (0-0.5); HEMATOCRIT 46.5 % (42-52); HEMOGLOBIN 16.1 g/dL (14.0-18.0); IG# 0.02 K/uL (0.00-0.02); LYMPH % 31.3 %; LYMPH ABS # 1.92 K/uL (1.2-3.4); MEAN CELL VOLUME 96.5 fL (80-100); MEAN CORPUSCULAR HEMOGLOBIN 33.4 pg (25-34); MEAN CORPUSCULAR HGB CONC 34.6 g/dl (32-36); MONO ABS # 0.43 K/uL (0.11-0.59); NEUT % 58.7 %; NEUT ABS # 3.59 K/uL (1.4-6.5); PLATELET COUNT 231 K/uL (130-400); RED CELL DISTRIBUTION WIDTH CV 12.8 % (11.5-14.5); RED CELL DISTRIBUTION WIDTH SD 44.4 fL (36.4-46.3); WHITE BLOOD COUNT 6.13 K/uL (4.8-10.8)
[2017-11-20 13:57] LABS: HEMOGLOBIN A1C 5.7 % (4.5-5.6)
[2017-11-20 14:21] LABS: ALBUMIN 3.9 gm/dl (3.4-5.0); ALT/SGPT 35 U/L (12-78); AST/SGOT 21 U/L (15-37); BLOOD UREA NITROGEN 14 mg/dl (7-18); CALCIUM 9.4 mg/dl (8.5-10.1); CARBON DIOXIDE 30 mmol/L (21-32); CREATININE 1.22 mg/dl (0.60-1.40); GLUCOSE 97 mg/dl (70-99); SODIUM 139 mmol/L (136-145)
[2017-11-20 14:24] LABS: ALKALINE PHOSPHATASE 72 U/L (45-117); CHOLESTEROL 210 mg/dl (0-200); LDL CHOLESTEROL (DIRECT) 132 mg/dl; TOTAL PROTEIN 7.7 gm/dl (6.4-8.2)
== END | disposition home or self-care (01) ==
LOC: C.LABSPEC 12:35
PROVIDERS: ATTEND Internal Medicine
DX: Z00.01 Encounter for general adult medical examination with abnormal findings (principal); E78.5 Hyperlipidemia, unspecified; R73.9 Hyperglycemia, unspecified

== ENCOUNTER → 2017-11-20 | Outpatient (CLI) | payer BC ==
[2017-11-27 15:11] LABS: FECAL OCCULT BLOOD #1 NEGATIVE (NEGATIVE); FECAL OCCULT BLOOD #2 NEGATIVE (NEGATIVE); FECAL OCCULT BLOOD #3 NEGATIVE (NEGATIVE)
== END | disposition home or self-care (01) ==
LOC: C.LABSPEC 14:56
PROVIDERS: ATTEND Internal Medicine
DX: Z12.11 Encounter for screening for malignant neoplasm of colon (principal)

== ENCOUNTER → 2018-01-14 | Day surgery (SDC) | payer BC ==
[2018-01-02 07:33] VITALS: Ht 185.4 cm; Wt 90.9 kg
[~2018-01-14] VITALS: Ht 185.4 cm; Wt 90.9 kg
[~2018-01-14] MED LIST changes: +ATROPINE SULFATE 0.1 MG/ML 5ML SYR IV PRN; +BUPIVACAINE 0.5 % 5 MG/1 ML MPF 30ML VIAL ONE; +EpHEDrine SULFATE INJ 50 MG/ML AMP IV PRN; +FENTANYL CITRATE INJ 50 MCG/1 ML 2 ML VIAL IV PRN; +FENTANYL CITRATE INJ 50 MCG/1 ML 2 ML VIAL ONE; +LACTATED RINGER'S 1000ML 1,000 ML IV SCH; +LIDOCAINE HCL 1% 20 ML VIAL ONE; +LIDOCAINE HCL 2% 2 ML VIAL (20MG/ML) ONE; +ONDANSETRON INJ 2 MG/ML 2 ML VIAL IV PRN; +PROPOFOL IV EMULSION 10 MG/ML 20 ML VIAL IV ONE; -RANITAB33 PO
--- NOTE | 2018-01-14 07:29 | [facility] Post Operative Brief Note ---
Immediate Operative Summary Operative Date Jan 14, 2018. Pre-Operative Diagnosis Left Carpal Tunnel Syndrome Post-Operative Diagnosis same as preop Procedure(s) Performed Left Carpal Tunnel Release Surgeon Dr. Broussard Superintendent Tests Surgeon(s) none Estimated Blood Loss 0ML Findings Consistent with Post-Op Diagnosis Specimens none Drains None Anesthesia Type MAC
[2018-01-14 07:32] VITALS: TEMP 36.2
--- NOTE | 2018-01-14 07:36 | Discharge Instructions ---
Discharge Instructions Date of Service Jan 14, 2018. Admission Reason for Admission: Left Carpal Tunnel Syndrome Discharge Discharge Diagnosis / Problem: same Discharge Goals Goal(s): Improve function Activity Recommendations Activity Limitations: as noted below Lifting Limitations: gradually increase as tolerated . Current Hospital Diet Patient's current hospital diet: Discharge Diet Recommended Diet: Regular Diet Procedures Procedures Performed: Left Carpal Tunnel Release Pending Studies Studies pending at discharge: no Laboratory Results Hemoglobin A1c Test 11/20/17 08:40 Range/Units Estimated Average Glucose 117 mg/dl Hemoglobin A1c 5.7 H 4.5-5.6 % Lipid Panel Test 11/20/17 08:40 Range/Units Triglycerides Level 239 H 0-150 mg/dl Cholesterol Level 210 H 0-200 mg/dl HDL Cholesterol 49 mg/dl LDL Cholesterol Direct 132 mg/dl Cholesterol/HDL Ratio 4.3 LDL Cholesterol, Calculated mg/dl Medical Emergencies . Who to Call and When: Medical Emergencies: If at any time you feel your situation is an emergency, please call 911 immediately. . Non-Emergent Contact Non-Emergency issues call your: Primary Care Provider . "Provider Documentation" section prepared by Gustavo Broussard. .
--- NOTE | 2018-01-14 07:53 | Anesthesiology Progress Note ---
Anesthesia Post Op Note Date & Time Jan 14, 2018 at 07:53 Vital Signs Pain Intensity: 0 Vital Signs Past 12 Hours Date Time Temp Pulse Resp B/P (MAP) Pulse Ox O2 Delivery O2 Flow Rate FiO2 01/14/18 07:32 36.2 74 16 127/76 (93) 97 Room Air 01/14/18 06:24 36.4 66 16 154/91 (112) 95 Room Air Notes Mental Status: alert / awake / arousable, participated in evaluation Pt Amnestic to Procedure: Yes Nausea / Vomiting: adequately controlled Pain: adequately controlled Airway Patency, RR, SpO2: stable & adequate BP & HR: stable & adequate Hydration State: stable & adequate Anesthetic Complications: no major complications apparent
[2018-01-14 08:01] VITALS: BP 150/86; PULSE 70; O2SAT 98
--- NOTE | 2018-01-15 08:03 | OPERATIVE REPORT ---
DATE OF OPERATION: 01/15/2018 DESCRIPTION OF PROCEDURE: The patient was taken to the surgical suite, a monitored IV sedation provided to the patient. I then scrubbed his left hand and wrist, forearm, improved in a sterile fashion. A tourniquet was applied to his left upper humerus. He was prepped and draped sterile. I anesthetized the skin area over the carpal canal with 1% Xylocaine. Tourniquet was inflated. A skin incision was made on the ulnar aspect of the long finger, dissecting the soft tissue, dissecting the fascia and dissecting the transverse carpal ligament. The patient tolerated it well. We irrigated, closed with nylon suture. Sterile dressings applied. The patient returned to recovery room satisfactory and stable. No apparent complications. Zero blood loss. I attest to the content of the Intraoperative Record and any orders documented therein. Any exception s are noted below.
== END | disposition home or self-care (01) ==
LOC: X.SURG 06:10
PROVIDERS: ATTEND Orthopaedic Surgery Orthopaedic Surgery of the Spine
DX: G56.02 Carpal tunnel syndrome, left upper limb (principal); E78.00 Pure hypercholesterolemia, unspecified

== ENCOUNTER → 2018-02-07 | Day surgery (SDC) | payer BC ==
[2018-01-23 14:20] VITALS: Ht 185.4 cm; Wt 90.9 kg
[~2018-02-07] VITALS: Ht 185.4 cm; Wt 90.9 kg
[~2018-02-07] MED LIST changes: +BUPIVACAINE 0.5 % 5 MG/1 ML PF 10ML VIAL ONE; -COCO1OIL2 PO; +FLUMAZENIL 0.1 MG/1 ML 10 ML VIAL IV PRN; +HYDROmorphone INJ 2 MG/ML SYR/VIAL IV PRN; +LABETALOL HCL IV 5 MG/ML 20ML IV PRN; +MEPERIDINE HCL 25 MG/ML CARP IV PRN; +MIDAZOLAM HCL 1 MG/ML 2ML VIAL ONE; +NALOXONE HCL 0.4 MG/1 ML VIAL/CARP IV PRN; +PHENYLEPHRINE 100MCG/ML 5ML SYR IV PRN
[2018-02-07 07:30] VITALS: TEMP 36.4
--- NOTE | 2018-02-07 07:30 | Discharge Instructions-SurgCtr ---
Discharge Instructions Date of Service Feb 07, 2018. Visit Reason for Visit: Carpal Tunnel Syndrome Discharge Discharge Diagnosis / Problem: same Discharge Goals Goal(s): Improve function Activity Recommendations Activity Limitations: as noted below Lifting Limitations: gradually increase as tolerated Anesthesia . Post Anesthesia Instructions: If you have had General Anesthesia or IV Sedation: * Do not drive today. * Resume driving when surgeon permits. * Do not make important decisions or sign legal documents today. * Call surgeon for: 1. Temperature elevations greater than 101 degrees F. 2. Uncontrollable pain. 3. Excessive bleeding. 4. Persistent nausea and vomiting. 5. Medication intolerance (nausea, vomiting or rash). * For nausea and vomiting use only clear liquids such as: tea, soda, bouillon until nausea subsides, then gradually increase diet as tolerated. * If you have any concerns or questions, call your surgeon's office. If physician is unavailable and it is an emergency, call 911 or go to the nearest emergency room. . Diet Recommendations Home Diet: no limitations Procedures Procedures Performed: Right Carpal Tunnel Release Pending Studies Studies pending at discharge: no Medical Emergencies . Who to Call and When: Medical Emergencies: If at any time you feel your situation is an emergency, please call 911 immediately. . Non-Emergent Contact Non-Emergency issues call your: Primary Care Provider . . "Provider Documentation" section prepared by Gustavo Broussard. .
--- NOTE | 2018-02-07 07:31 | [facility] Post Operative Brief Note ---
Immediate Operative Summary Operative Date Feb 07, 2018. Pre-Operative Diagnosis Right carpal tunnel syndrome Post-Operative Diagnosis Same as preop Procedure(s) Performed Right Carpal Tunnel Release Surgeon Dr. Broussard Grinder Machine Setter Surgeon(s) None Estimated Blood Loss 0 mL Findings Consistent with Post-Op Diagnosis Specimens None Anesthesia Type MAC
--- NOTE | 2018-02-07 07:39 | OPERATIVE REPORT ---
DATE OF OPERATION: 02/07/2018 PREOPERATIVE DIAGNOSIS: Right carpal tunnel syndrome. POSTOPERATIVE DIAGNOSIS: Right carpal tunnel syndrome. PROCEDURE: Release of the right carpal canal, median nerve. SURGEON: Gustavo Broussard MD COMPLICATIONS: Zero. COMPLICATIONS: Zero. ANESTHETIC: Monitored local sedation. DESCRIPTION OF PROCEDURE: The patient was taken to the minor procedure room and kept supine. Tourniquet was applied to his upper extremity. His right hand was prepped and draped sterile. We marked out a skin incision, we were on the ulnar aspect of the long finger approximately 3 cm in length. We dissected the skin, dissected the fascia, divided the transverse carpal ligament proximal, I am estimating about 1-2 cm proximal to the crease of the wrist. We irrigated and closed with nylon. Sterile dressing was applied. The patient returned to PACU stable. No apparent complications. I attest to the content of the Intraoperative Record and any orders documented therein. Any exception s are noted below.
--- NOTE | 2018-02-07 07:52 | Anesthesia Progress Nt - [facility] ---
Anesthesia Post Op Note Date & Time Feb 07, 2018 at 07:52 Vital Signs Pain Intensity: 0 Vital Signs Past 12 Hours Date Time Temp Pulse Resp B/P (MAP) Pulse Ox O2 Delivery O2 Flow Rate FiO2 02/07/18 07:30 36.4 74 12 125/76 (92) 96 Room Air 02/07/18 06:26 36.1 72 22 146/84 (104) 97 Room Air Notes Mental Status: alert / awake / arousable, participated in evaluation Pt Amnestic to Procedure: Yes Nausea / Vomiting: adequately controlled Pain: adequately controlled Airway Patency, RR, SpO2: stable & adequate BP & HR: stable & adequate Hydration State: stable & adequate Anesthetic Complications: no major complications apparent
[2018-02-07 07:58] VITALS: BP 146/78; PULSE 75; O2SAT 99
== END | disposition home or self-care (01) ==
LOC: X.SURG 06:07
PROVIDERS: ATTEND Orthopaedic Surgery Orthopaedic Surgery of the Spine
DX: G56.01 Carpal tunnel syndrome, right upper limb (principal); K21.9 Gastro-esophageal reflux disease without esophagitis; N40.0 Benign prostatic hyperplasia without lower urinary tract symptoms; E78.00 Pure hypercholesterolemia, unspecified; Z83.3 Family history of diabetes mellitus